=== PATIENT | female | born 1995 | race Caucasian/White ===

== ENCOUNTER 2016-08-11 12:05 | Emergency (ER) | payer BC ==
[~2016-08-11] VITALS: Ht 165.1 cm; Wt 71.3 kg
[2016-08-11 12:46] LABS: HEMATOCRIT 40.5 % (36.0-46.0); MCH 31.5 PG (29.0-34.0); MCHC 35.1 G/DL (30.0-36.0); MCV 89.8 FL (83-99); MEAN PLAT.VOLUME 9.9 uM^3 (9.5-12.4); PLATELET COUNT 247 K/uL (156-360); RBC DIS.WIDTH-SD 38.3 % (39-53); RED BLOOD COUNT 4.51 M/uL (3.80-5.20); WHITE BLOOD COUNT 8.9 K/uL (4.1-10.2)
[2016-08-11 13:04] LABS: CHLORIDE 106 mEq/L (99-109); POTASSIUM 4.1 mEq/L (3.7-5.4); SODIUM 141 mEq/L (136-147)
[2016-08-11 13:06] LABS: GLUCOSE 84 mg/dL (70-99)
[2016-08-11 13:07] LABS: ANION GAP 10 MEQ/L (2-14)
[2016-08-11 13:09] LABS: ALKALINE PHOSPHATASE 76 IU/L (3-129)
[2016-08-11 13:11] LABS: GFR ESTIMATE (CALCULATED) > 59 mL/min/; UREA NITROGEN (BUN) 12 mg/dL (9-23)
[2016-08-11 13:21] LABS: QUANTITATIVE HCG < 4.0 MIU/ML
[2016-08-11 14:06] LABS: LIPASE 20 U/L (1.0-51.0)
[2016-08-11] MEDS ORDERED: JUNEL FE 1/21 TABLET PO (14:38)
[2016-08-11 14:52] LABS: ADD MIUA? NO; BILIRUBIN NEGATIVE; BLOOD NEGATIVE; COLOR YELLOW ((YELLOW)); GLUCOSE (STRIP) NEGATIVE; KETONES 15; LEUKOCYTES NEGATIVE; NITRITE NEGATIVE; PROTEIN (STRIP) TRACE; UCUL ADDED? NO; UROBILINOGEN 0.2 MG/DL (0.2-1.0)
[2016-08-11] MEDS ORDERED: ZOFRAN ODT4 MG PO (14:55)
[2016-08-11] MEDS ORDERED: BENTYL10 MG PO (14:55)
[2016-08-11 15:18] VITALS: BP 117/64
[2016-08-11 15:24] LABS: SPECIFIC GRAVITY 1.052 (1.000-1.030)
== END 2016-08-11 15:19 | disposition home or self-care (01) ==
LOC: EME 12:05
DX: R10.31 Right lower quadrant pain (principal); R11.10 Vomiting, unspecified; R19.7 Diarrhea, unspecified
CPT/HCPCS: 74177; 80053; 81003; 83690; 84702; 85027; 99281; 99285; J1885; J2405; J7030